=== PATIENT | male | born 1945 | race Caucasian/White ===

== ENCOUNTER 2017-01-27 06:35 | Emergency (ER) | payer BC, MEDICARE ==
[~2017-01-27] VITALS: Ht 167.6 cm; Wt 73.6 kg
[2017-01-27] MEDS ORDERED: KETOROLAC 15 MG INJ IV STA (06:39)
[2017-01-27] MEDS ORDERED: SOD CHLORIDE 0.9% 1,000 ML IV STA (06:39)
[2017-01-27 06:56] VITALS: Ht 167.6 cm; Wt 73.6 kg
[2017-01-27] MEDS ORDERED: NEOMYC/POLYMYX/BACIT 30 GM OINT TOP ONE (07:00)
[2017-01-27] MEDS ORDERED: ESZO3TAB12 PO (07:12)
[2017-01-27] MEDS ORDERED: OXYC5CAP17 PO (07:13)
[2017-01-27 07:17] LABS: ADD SCAN DIFF NO
[2017-01-27 07:20] LABS: ADD UMIC YES; BASOPHILS % 0.3 % (0.0-2.0); EOSINOPHILS # 0.1 10^3/ul (0.0-0.5); EOSINOPHILS % 0.5 % (0.0-7.0); HEMATOCRIT 41.3 % (42.0-52.0); HEMOGLOBIN 14.5 g/dl (14.0-18.0); LYMPHOCYTES # 1.4 10^3/ul (0.8-2.9); LYMPHOCYTES % 14.6 % (15.0-51.0); MEAN CORPUSCULAR HEMOGLOBIN 31.8 pg (29.0-33.0); MEAN CORPUSCULAR HGB CONC 35.1 g/dl (32.0-37.0); MEAN CORPUSCULAR VOLUME 90.6 fl (82.0-101.0); MEAN PLATELET VOLUME 9.8 fl (7.4-10.4); MONOCYTE # 0.6 10^3/ul (0.3-0.9); MONOCYTES % 6.2 % (0.0-11.0); NEUTROPHIL # 7.5 10^3/ul (1.6-7.5); NEUTROPHILS % 77.7 % (39.0-77.0); PLATELET COUNT 222 10^3/UL (140-415); RED BLOOD COUNT 4.56 10^6/ul (4.70-6.10); RED CELL DISTRIBUTION WIDTH 12.6 % (11.5-14.5); URINE BILIRUBIN (Dip) NEGATIVE (NEGATIVE); URINE BLOOD (Dip) NEGATIVE (NEGATIVE); URINE COLOR YELLOW (YELLOW); URINE GLUCOSE (Dip) NEGATIVE (NEGATIVE); URINE KETONES (Dip) NEGATIVE (NEGATIVE); URINE LEUKOCYTE ESTERASE (Dip) NEGATIVE (NEGATIVE); URINE NITRITE (Dip) NEGATIVE (NEGATIVE); URINE TOTAL PROTEIN (Dip) 1+ (NEGATIVE); URINE UROBILINOGEN (Dip) 2.0 E.U./dL (0.1-1.0); WHITE BLOOD COUNT 9.6 10^3/ul (4.8-10.8)
[2017-01-27] MEDS ORDERED: CARI350T PO (07:21)
[2017-01-27 07:27] LABS: ALBUMIN 4.6 g/dl (3.3-4.9); CHLORIDE 104 mmol/L (97-110)
[2017-01-27 07:28] LABS: POTASSIUM 4.3 mmol/L (3.5-5.1); SODIUM 140 mmol/L (135-144)
[2017-01-27 07:30] LABS: ALANINE AMINOTRANSFERASE 40 IU/L (13-69); ALBUMIN/GLOBULIN RATIO 1.48; ALKALINE PHOSPHATASE 73 IU/L (42-121); ANION GAP 17 (8-16); ASPARTATE AMINO TRANSFERASE 28 IU/L (15-46); BILIRUBIN,INDIRECT 0.9 mg/dl (0-1.1); BILIRUBIN,TOTAL 0.9 mg/dl (0.2-1.3); BLOOD UREA NITROGEN 18 mg/dl (7-20); CARBON DIOXIDE 23 mmol/L (21-31); CREATININE 1.19 mg/dl (0.61-1.24); GLUCOSE 94 mg/dl (70-220); TOTAL PROTEIN 7.7 g/dl (6.1-8.1)
[2017-01-27 07:31] LABS: CALCIUM 11.2 mg/dl (8.4-10.2)
--- NOTE | 2017-01-27 07:33 | RADRPT ---
PROCEDURE: CT Brain without contrast. CLINICAL INDICATION: Weakness TECHNIQUE: Routine CT scan of the brain was performed on a high resolution multi detector scanner without intravenous contrast. One or more of the following dose reduction techniques were used: Auto mated exposure control; Adjustment of the mA and/or kV according to patient size; Use of iterative r econstruction technique. CTDI = 44 mGy. DLP = 810 mGy-cm. COMPARISON: No prior relevant examinations are available for comparison. FINDINGS: Hemorrhage: No evidence of intracranial hemorrhage. Acute ischemic changes: No evidence of acute ischemic changes. Mass effect/Midline shift: None. Parenchymal volume: Within normal limits for age. Ventricular system: Concordant with parenchymal volume. Chronic changes: Mild chronic-appearing microvascular ischemic changes of the supratentorial white m atter. Atherosclerotic calcifications of the cavernous portions of both internal carotid arteries ar e present. Extracranial soft tissues: Unremarkable. Calvarium: No fractures. Paranasal sinuses: Minimal fluid level within the left maxillary sinus. Mastoid air cells: Visualized mastoid air cells are clear. IMPRESSION: No acute intracranial abnormalities. Mild chronic-appearing microvascular ischemic changes of the supratentorial white matter. MRI of the brain may be useful for further evaluation. RPTAT: AADD .Seferino Rincon MD, MD Date Time Electronically viewed and signed by .Seferino Rincon MD, MD on 01/27/2017 07:33 .B/
[2017-01-27 07:39] LABS: BACTERIA,URINE FEW
[2017-01-27 07:43] LABS: TROPONIN-I < 0.012 ng/ml (0.00-0.12)
[2017-01-27 07:47] LABS: ETHANOL < 10.0 mg/dl
--- NOTE | 2017-01-27 07:54 | RADRPT ---
PROCEDURE: XR Chest. CLINICAL INDICATION: Abdominal pain TECHNIQUE: Single AP portable chest COMPARISON: None. FINDINGS: The cardiomediastinal silhouette is within normal limits of size. Atherosclerotic calcification of t he aorta. The lungs are clear without pleural effusion or focal consolidation. No pneumothorax. Th e osseous structures and soft tissues are unremarkable. IMPRESSION: 1. No evidence for active cardiopulmonary disease. RPTAT:AAJJ Starr Newman Physician Date Time Electronically viewed and signed by Starr Newman Physician on 01/27/2017 07:53 MAUREEN/
[2017-01-27] MEDS ORDERED: HYDR28CR43 TOP (07:57)
[2017-01-27] MEDS ORDERED: IBUP-1542 PO (07:57)
--- NOTE | 2017-01-27 08:07 | ERD ---
ER Documentation Chief Complaint Date/Time DATE: 01/27/17 TIME: 08:06 Chief Complaint FELL 2-3X WHILE GOING TO GET COFFEE, CONFUSION, FATIGUE, BODY ACHES HPI 71-year-old man brought in by EMS for mechanical trip and fall while walking to the coffee shop. He does recall the entire episode and denies loss of consciousness and complains of abrasions to the dorsal aspects of both hands and was able to ambulate after the fall, patient denies hip pain. Patient denies head or neck injury although he did sustain a right brow abrasion, no complaints of neck pain or stiffness, no chest pain or shortness of breath, no vomiting or abdominal pain. Patient was transported here by EMS without further complications and states his tetanus immunization is up-to-date. ROS All systems reviewed and are negative except as per history of present illness. Medications Home Meds Active Scripts Hydrocortisone (Neosporin) 1% - 28 Gm Cream..g., 1 APPLIC TOP BID, #1 TUB Prov:MARIA ESTHER ORELLANA MD 01/27/17 Ibuprofen* (Motrin*) 600 Mg Tab, 600 MG PO Q8 Y for PAIN AND/OR INFLAMMATION, # 30 TAB Prov:MARIA ESTHER ORELLANA MD 01/27/17 Reported Medications Carisoprodol* (Soma*) 350 Mg Tablet, 350 MG PO BID Y for MUSCLE SPASMS, TAB 01/27/17 Oxycodone Hcl* (IR) (Oxycodone Hcl*) 5 Mg Capsule, 5 MG PO Q4H Y for PAIN, CAP 01/27/17 Eszopiclone (Lunesta) 3 Mg Tablet, 3 MG PO HS Y for INSOMNIA, TAB 01/27/17 Allergies Allergies: Coded Allergies: prochlorperazine (Verified Allergy, Intermediate, AGITATION, 01/27/17) Penicillins (Verified Allergy, Unknown, UNK, 01/27/17) PMhx/Soc Mild dementia History of Surgery: Yes (RT ANKLE) Anesthesia Reaction: No Hx Neurological Disorder: No Hx Respiratory Disorders: No Hx Cardiac Disorders: No Hx Psychiatric Problems: No Hx Miscellaneous Medical Probl: Yes ("SLEEPING ISSUES" TAKES MEDICATION, CHRONIC ANKLE PAIN, HEP-C) Hx Alcohol Use: No ("IN AA FOR MANY YEARS") Hx Substance Use: No Hx Tobacco Use: No Smoking Status: Never smoker FmHx Family History: No diabetes Physical Exam Vitals Vital Signs Date Time Temp Pulse Resp B/P Pulse Ox O2 Delivery O2 Flow Rate FiO2 01/27/17 09:06 77 18 118/90 99 Room Air 01/27/17 06:56 98.1 75 16 121/87 99 Physical Exam GENERAL: Well-developed, well-nourished, appears dehydrated HEENT: Dry mucous membranes, pink conjunctiva, no cervical spine tenderness or step-off deformities, no goiter, no jaundice or icterus, extraocular movements intact without pain. Superficial abrasion to the right lateral brow. NEURO: Alert and oriented 3, cranial nerves II through XII intact bilaterally, pupils equal round reactive to light, no focal deficits or facial asymmetry, sensation intact distally Strength 5/5 in upper and lower extremities bilaterally CARDIAC: Regular rate and rhythm, no murmurs rubs or gallops LUNGS: Clear bilaterally no wheezing crackles or stridor ABDOMEN: Soft nontender, no guarding, no rigidity, no rebound, no psoas sign no obturator sign. Normoactive bowel sounds SKIN: Warm and dry to touch, abrasions to the dorsal hands bilaterally and right lateral brow, no lacerations, no ecchymosis, no target lesions, and without ulcers EXTREMITIES: No clubbing cyanosis or edema, calves are bilaterally symmetrical, no Homans sign, no popliteal cord sign. Distal pulses equal and bilateral PSYCH: Normal affect without agitation or irritability Result Diagram: 01/27/17 0700 01/27/17 0700 Results 24 hrs Laboratory Tests Test 01/27/17 07:00 White Blood Count 9.610^3/ul Red Blood Count 4.5610^6/ul Hemoglobin 14.5g/dl Hematocrit 41.3% Mean Corpuscular Volume 90.6fl Mean Corpuscular Hemoglobin 31.8pg Mean Corpuscular Hemoglobin Concent 35.1g/dl Red Cell Distribution Width 12.6% Platelet Count 96801^3/UL Mean Platelet Volume 9.8fl Neutrophils % 77.7% Lymphocytes % 14.6% Monocytes % 6.2% Eosinophils % 0.5% Basophils % 0.3% Nucleated Red Blood Cells % 0.0/100WBC Neutrophils # 7.510^3/ul Lymphocytes # 1.410^3/ul Monocytes # 0.610^3/ul Eosinophils # 0.110^3/ul Basophils # 0.010^3/ul Nucleated Red Blood Cells # 0.010^3/ul Urine Color YELLOW Urine Clarity CLEAR Urine pH 7.0 Urine Specific [place] 1.010 Urine Ketones NEGATIVE Urine Nitrite NEGATIVE Urine Bilirubin NEGATIVE Urine Urobilinogen 2.0 E.U./dL Urine Leukocyte Esterase NEGATIVE Urine Microscopic RBC 10-25/HPF Urine Microscopic WBC 5-10/HPF Urine Epithelial Cells FEW Urine Bacteria FEW Urine Hemoglobin NEGATIVE Urine Glucose NEGATIVE% Urine Total Protein 1+ Sodium Level 140mmol/L Potassium Level 4.3mmol/L Chloride Level 104mmol/L Carbon Dioxide Level 23mmol/L Anion Gap 17 Blood Urea Nitrogen 18mg/dl Creatinine 1.19mg/dl Glucose Level 94mg/dl Calcium Level 11.2mg/dl Total Bilirubin 0.9mg/dl Direct Bilirubin 0.00mg/dl Indirect Bilirubin 0.9mg/dl Aspartate Amino Transf (AST/SGOT) 28IU/L Alanine Aminotransferase (ALT/SGPT) 40IU/L Alkaline Phosphatase 73IU/L Troponin I < 0.012ng/ml Total Protein 7.7g/dl Albumin 4.6g/dl Globulin 3.10g/dl Albumin/Globulin Ratio 1.48 Lipase 17U/L Ethyl Alcohol Level < 10.0mg/dl Current Medications Medications (Trade) Dose Ordered Sig/Estephania Route PRN Reason Start Time Stop Time Status Last Admin Dose Admin Neomycin/ Polymyxin/ Bacitracin 1 applic 1 applic ONCE ONCE TOP 01/27/17 07:00 01/27/17 07:01 DC Sodium Chloride (NS) 1,000 ml @ 1,000 mls/hr Q1H STAT IV 01/27/17 06:39 01/27/17 07:38 DC 01/27/17 07:15 Ketorolac Tromethamine (Toradol) 15 mg ONCE STAT IV 01/27/17 06:39 01/27/17 06:41 DC 01/27/17 07:15 Procedures/MDM IV line was established patient was placed on cardiac monitor technician rhythm strip revealed a sinus rhythm at about 70 bpm with upright P and T waves. Patient was afebrile. EKG performed, read by me revealed a normal sinus rhythm at 70 bpm, left axis deviation, and a right ventricular conduction delay with incarceration 106 ms, no concerning ST elevations or depressions noted. One AP view of the chest performed, read by me reveals no acute infiltrates, normal mediastinum, sharp costophrenic and cardiac borders, no air under the diaphragm. Otherwise unremarkable chest x-ray. CT scan of the brain was performed that was negative for acute bleed mass or shift. I administered 1 L normal saline intravenously, Toradol 15 mg IV, and triple antibiotic ointment was applied to all the abrasions after copious irrigation with normal saline. CBC and electrolytes were normal, liver function tests are normal, troponin was negative. Urine analysis was negative and alcohol level was negative. Differential diagnoses considered, included but not limited to acute coronary syndrome, pulmonary embolism, aortic dissection, abdominal aortic aneurysm, sepsis, stroke, meningitis, encephalitis, pneumonia, appendicitis, cholecystitis , bowel obstruction, pyelonephritis, nephrolithiasis, cystitis, as well as metabolic, hematologic, and electrolyte abnormalities. As well as abscess, cellulitis, fractures, and dislocations. Patient feels much better at this time, and vital signs are normal, symptoms have improved. I did give strict instructions to return to the ED if symptoms continue or worsen, patient will otherwise follow-up with primary care physician. Patient understood instructions and agreed to plan. Patient has full range of motion and is without bony tenderness to the hands bilaterally, he has no deformity except for superficial abrasions I do not suspect any fracture or dislocation. Departure Diagnosis: Primary Impression: Fall Encounter type: initial encounter Qualified Code: W19.XXXA - Fall, initial encounter Additional Impressions: Scalp contusion Abrasion Condition: Good Patient Instructions: Abrasion, Scalp Contusion, No Wake Up, Fall, Mechanical MARIA ESTHER ORELLANA MD January 27, 2017 08:07
[2017-01-27 09:06] VITALS: BP 118/90; PULSE 77; RESP 18
== END 2017-01-27 09:08 | disposition home or self-care (01) ==
LOC: E/R 06:35
DX: S60.511A Abrasion of right hand, initial encounter (principal); S60.512A Abrasion of left hand, initial encounter; S00.03XA Contusion of scalp, initial encounter; R53.1 Weakness; R40.2142 Coma scale, eyes open, spontaneous, at arrival to emergency department; R40.2252 Coma scale, best verbal response, oriented, at arrival to emergency department; R40.2362 Coma scale, best motor response, obeys commands, at arrival to emergency department; W01.0XXA Fall on same level from slipping, tripping and stumbling without subsequent striking against object, initial encounter; Y92.9 Unspecified place or not applicable
CPT/HCPCS: 36415; 70450; 71010; 80053; 80306; 81001; 83690; 84484; 85025; 93005; 96374; 99285; J1885; J7030; 81003